=== PATIENT | female | born 1990 | race Caucasian/White ===

== ENCOUNTER 2020-06-25 04:28 | Inpatient (IN) ==
[2020-06-25] MEDS ORDERED: Famotidine 20 MG/2 ML VIAL IVP ONE (04:53)
[2020-06-25] MEDS ORDERED: Ondansetron 4 MG/2 ML VIAL IVP ONE (04:53)
[2020-06-25] MEDS ORDERED: Ketorolac 15 MG/ML VIAL IVP ONE (04:53)
[2020-06-25] MEDS ORDERED: 0.9 % Sodium Chloride 1,000 ML IVC ONE (04:55)
[2020-06-25] MEDS ORDERED: 0.9 % Sodium Chloride 1,000 ML ONE (04:56)
[2020-06-25 05:17] LABS: Bacteria,Urine Few per hpf (None-Few); Bilirubin,Urine Negative (Negative); Blood,Urine Negative (Negative); Clarity,Urine Turbid (Clear); Color,Urine Light-Yellow (Yellow); Glucose,Urine (UA) Normal (Normal); Ketones,Urine Negative (Negative); Leukocyte Esterase,Urine Trace (Negative); Mucus,Urine Few per lpf (None-Few); Nitrite,Urine Negative (Negative); Protein,Urine Trace mg/dL (Neg-Trace); Specific Gravity,Urine 1.019 (1.010-1.025); Squamous Epithelial Cell,Urine Moderate per hpf (None-Few); Urobilinogen,Urine Normal (Normal)
[2020-06-25 05:18] LABS: Basophils % 0.4 %; Eosinophils # 0.2 K/mcL (0.0-0.6); Eosinophils % 2.2 %; Hematocrit 42.8 % (35.3-44.9); Hemoglobin 13.7 g/dL (11.5-15.4); Immature Granulocytes % 0.4 % (0-4); Lymphocytes # 3.2 K/mcL (0.6-4.6); Lymphocytes % 28.9 %; Mean Corpuscular Hemoglobin 26.2 pg (28.0-33.3); Mean Corpuscular Volume 81.8 fL (83.0-100.0); Mean Platelet Volume 9.8 fL (9.4-12.4); Monocytes # 0.9 K/mcL (0.0-1.3); Neutrophils # 6.7 K/mcL (1.6-8.9); Platelet Count 269 K/mcL (140-400); Red Blood Count 5.23 M/mcL (3.82-4.97); Segmented Neutrophils % 60.1 %; White Blood Count 11.1 K/mcL (4.3-11.1)
[2020-06-25] MEDS ORDERED: *HR* FentaNYL (PF) 100 MCG/2 ML VIAL IVP ONE ×2 (05:25→08:32)
[2020-06-25 05:32] LABS: Alanine Aminotransferase 17 Units/L (7-52); Albumin 4.3 g/dL (3.5-5.7); Albumin/Globulin Ratio 1.5 (1.1-2.2); Alkaline Phosphatase 68 Units/L (34-104); Aspartate Amino Transferase 15 Units/L (13-39); BUN/Creatinine Ratio 8 (6-26); Bilirubin,Indirect 0.3 mg/dL (0.0-1.0); Bilirubin,Total 0.3 mg/dL (0.3-1.0); Blood Urea Nitrogen 8 mg/dL (6-20); Calcium 9.1 mg/dL (8.6-10.3); Carbon Dioxide 26 mEq/L (23-29); Chloride 104 mEq/L (98-107); Globulin 2.9 g/dL (2.4-3.5); Glucose 117 mg/dL (70-105); Osmolality,Calculated 283 (280-300); Potassium 3.8 mEq/L (3.5-5.1); Sodium 137 mEq/L (136-145); Total Protein 7.2 g/dL (6.4-8.9); eGFR For African Americans > 60 (> 60); eGFR For Non-African Americans > 60 (> 60)
[2020-06-25] MEDS ORDERED: Isovue-370 500 ML BOTTLE IVP ONE (05:56)
[2020-06-25] MEDS: 0.9 % Sodium Chloride 1,000 ML IVC SCH ×2 (06:05→13:50)
[2020-06-25] MEDS ORDERED: Naloxone 0.4 MG/ML INJ IVP PRN (07:13)
[2020-06-25] MEDS ORDERED: Morphine Sulfate 2 MG/ML SYRINGE IVP PRN (07:18)
[2020-06-25] MEDS: Ondansetron 4 MG/2 ML VIAL IVP PRN ×3 (07:59→20:41)
[2020-06-25] MEDS ORDERED: *HR* HYDROmorphone 20 MG/20 ML PCA IVC PRN (08:43)
[2020-06-25] MEDS ORDERED: *HR* LORazepam 2 MG/ML VIAL IVP PRN (08:57)
[2020-06-25] MEDS: BuPROPion XL (24 HR) 150 MG TABLET PO SCH (10:03)
[2020-06-25] MEDS: Loratadine 10 MG TABLET PO SCH (10:03)
[2020-06-25 15:45] LABS: Cholesterol 180 mg/dL (< 200); HDL Cholesterol 36 mg/dL (40-59); LDL Cholesterol,Calculated 101 mg/dL (< 100); Triglycerides 214 mg/dL (< 150)
[2020-06-25 17:30] LABS: Influenza A PCR Negative (Negative); Influenza B PCR Negative (Negative); Resp. Syncytial Virus PCR Negative (Negative)
[2020-06-25 17:31] LABS: SARS-CoV-2 by PCR (In House) Negative (Negative)
[2020-06-25] MEDS: LEVONORGESTREL PO SCH (18:10)
[2020-06-26] MEDS: 0.9 % Sodium Chloride 1,000 ML IVC SCH ×2 (00:48→08:38)
[2020-06-26 01:33] LABS: Basophils % 0.3 %; Eosinophils # 0.2 K/mcL (0.0-0.6); Eosinophils % 1.9 %; Hematocrit 39.4 % (35.3-44.9); Hemoglobin 12.3 g/dL (11.5-15.4); Immature Granulocytes % 0.4 % (0-4); Lymphocytes # 2.3 K/mcL (0.6-4.6); Lymphocytes % 22.1 %; Mean Corpuscular HGB Conc 31.2 g/dL (31.6-35.5); Mean Corpuscular Hemoglobin 26.1 pg (28.0-33.3); Mean Corpuscular Volume 83.7 fL (83.0-100.0); Mean Platelet Volume 9.5 fL (9.4-12.4); Monocytes # 0.6 K/mcL (0.0-1.3); Monocytes % 5.3 %; Neutrophils # 7.4 K/mcL (1.6-8.9); Platelet Count 226 K/mcL (140-400); Red Blood Count 4.71 M/mcL (3.82-4.97); Red Cell Distribution Width 14.2 % (11.5-14.5); White Blood Count 10.6 K/mcL (4.3-11.1)
[2020-06-26 02:02] LABS: Albumin 3.8 g/dL (3.5-5.7); Albumin/Globulin Ratio 1.6 (1.1-2.2); Bilirubin,Direct 0.1 mg/dL (0.0-0.2); Bilirubin,Indirect 0.3 mg/dL (0.0-1.0); Bilirubin,Total 0.4 mg/dL (0.3-1.0); Globulin 2.4 g/dL (2.4-3.5); Total Protein 6.2 g/dL (6.4-8.9)
[2020-06-26 02:19] LABS: BUN/Creatinine Ratio 8 (6-26); Blood Urea Nitrogen 8 mg/dL (6-20); Calcium 8.1 mg/dL (8.6-10.3); Carbon Dioxide 23 mEq/L (23-29); Chloride 108 mEq/L (98-107); Glucose 93 mg/dL (70-105); Lipase 1135 Units/L (11-82); Osmolality,Calculated 286 (280-300); Potassium 3.9 mEq/L (3.5-5.1); Sodium 139 mEq/L (136-145); eGFR For African Americans > 60 (> 60); eGFR For Non-African Americans > 60 (> 60)
[2020-06-26] MEDS: Ondansetron 4 MG/2 ML VIAL IVP PRN ×3 (03:44→18:26)
[2020-06-26] MEDS: Loratadine 10 MG TABLET PO SCH (08:38)
[2020-06-26] MEDS: BuPROPion XL (24 HR) 150 MG TABLET PO SCH (08:38)
[2020-06-26] MEDS: Ketorolac 30 MG/ML VIAL IVP PRN ×2 (08:48→18:25)
[2020-06-26] MEDS: LEVONORGESTREL PO SCH (14:08)
[2020-06-27] MEDS: 0.9 % Sodium Chloride 1,000 ML IVC SCH (01:13)
[2020-06-27] MEDS: Ondansetron 4 MG/2 ML VIAL IVP PRN ×2 (01:13→13:50)
[2020-06-27 01:41] LABS: Alanine Aminotransferase 18 Units/L (7-52); Albumin 3.9 g/dL (3.5-5.7); Albumin/Globulin Ratio 1.5 (1.1-2.2); Alkaline Phosphatase 63 Units/L (34-104); Aspartate Amino Transferase 13 Units/L (13-39); BUN/Creatinine Ratio 9 (6-26); Bilirubin,Total 0.4 mg/dL (0.3-1.0); Blood Urea Nitrogen 9 mg/dL (6-20); Calcium 8.1 mg/dL (8.6-10.3); Carbon Dioxide 25 mEq/L (23-29); Chloride 106 mEq/L (98-107); Globulin 2.6 g/dL (2.4-3.5); Glucose 95 mg/dL (70-105); Lipase 229 Units/L (11-82); Osmolality,Calculated 284 (280-300); Potassium 3.7 mEq/L (3.5-5.1); Sodium 138 mEq/L (136-145); Total Protein 6.5 g/dL (6.4-8.9); eGFR For African Americans > 60 (> 60); eGFR For Non-African Americans > 60 (> 60)
[2020-06-27] MEDS: BuPROPion XL (24 HR) 150 MG TABLET PO SCH (07:34)
[2020-06-27] MEDS: Loratadine 10 MG TABLET PO SCH (07:34)
[2020-06-27] MEDS ORDERED: *HR* OxyCODONE/APAP 5/325 TABLET PO PRN (08:43)
[2020-06-27] MEDS ORDERED: *HR* HYDROcodone/Acet 5/325 mg TABLET PO PRN (08:43)
[2020-06-27] MEDS ORDERED: Ketorolac 30 MG/ML VIAL IVP PRN (08:45)
[2020-06-27 10:44] VITALS: BP 114/76
[2020-06-29 10:21] LABS: Immunoglobulin G Subclass 1 463 mg/dL (240-1118); Immunoglobulin G Subclass 2 145 mg/dL (124-549); Immunoglobulin G Subclass 3 12 mg/dL (21-134); Immunoglobulin G Subclass 4 43 mg/dL (1-123)
== END 2020-06-27 14:53 | disposition home or self-care (01) | DRG 439 ==
LOC: EMEROOARM 04:28 → 3NENU 04:28 → SUATTDRO 06:38 → 3NENU 06:53
PROVIDERS: ADMIT Internal Medicine; ATTEND Internal Medicine